=== PATIENT | female | born 1990 | race Caucasian/White ===

== ENCOUNTER 2018-05-16 14:32 | Emergency (ER) | payer SELFPAY ==
[2018-05-16 17:33] LABS: Absolute Monocytes 0.6 K/uL (0.1-1.3); Absolute Neutrophil 5.9 K/uL (1.8-8.0); Basophils % 0.5 % (0-1.3); Eosinophils % 0.4 % (0-4.4); Hematocrit 39.6 % (36.0-45.0); Lymphocytes % 23.2 % (15.3-44.8); MPV 10.6 fL (7.6-11.3); Monocytes % 6.6 % (3.3-12.3)
[2018-05-16 17:56] LABS: BUN Blood Urea Nitrogen 13 mg/dL (7-18); Bicarbonate 27 mmol/L (21-32); Glucose Level 79 mg/dL (74-106); HCG, Quantitative > 200000 mIU/mL (1-3); Potassium 3.7 mmol/L (3.5-5.1); Sodium Level 139 mmol/L (136-145)
--- NOTE | 2018-05-16 18:13 | RAD REPORT ---
EXAM DESCRIPTION: US - Transvaginal OB - 05/16/2018 5:58 pm CLINICAL HISTORY: with abdominal pain COMPARISON: None. FINDINGS: The uterus 8 x 7 x 7 centimeters. A gestational sac is present within the endometrium. Wi thin this is a pole with crown-rump length 2.1 centimeters. Cardiac activity 163 beats per adonis te. A yolk sac is seen. Neither ovary visualized. Right and left adnexal unremarkable. No significant free fluid IMPRESSION: Single live intrauterine with an estimated gestational age 8 weeks 5 days NACHO 12/21/2018
--- NOTE | 2018-05-16 18:23 | ER ---
Nurse's Notes [facility] Name: Duglas Paez Age: 28 yrs Sex: Female : 1990 Arrival Date: 05/16/2018 Time: 14:36 Bed 5 Private MD: None, None Diagnosis: Threatened Presentation: 05/16 15:06 Care prior to arrival: None. aa5 15:06 Presenting complaint: Pt's friend states "she started having back pain and vaginal aa5 spotting that began 1 week ago and got heavier yesterday". Denies passing blood clots. Pt reports positive test the beginning of April. Transition of care: patient was not received from another setting of care. Onset of symptoms was April 2018. Risk Assessment: Do you want to hurt yourself or someone else? Patient reports no desire to harm self or others. Initial Sepsis Screen: Does the patient meet any 2 criteria? No. Patient's initial sepsis screen is negative. Does the patient have a suspected source of infection? No. Patient's initial sepsis screen is negative. 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 - Social history:: Smoking status: Patient/guardian denies using tobacco. - Ebola Screening: : No symptoms or risks identified at this time. Screenin:53 Abuse screen: Denies threats or abuse. Nutritional screening: No deficits noted. tw2 Tuberculosis screening: No symptoms or risk factors identified. Fall Risk None identified. Assessment: 17:07 General: Appears in no apparent distress. Behavior is calm, cooperative, appropriate tw2 for age. Pain: Complains of pain in pelvis. Neuro: Level of Consciousness is awake, alert, obeys commands, Oriented to person, place, time, situation. Cardiovascular: Heart tones S1 S2 Patient's skin is warm and dry. Respiratory: Airway is patent Respiratory effort is even, unlabored, Respiratory pattern is regular, symmetrical, Breath sounds are clear bilaterally. GI: No signs and/or symptoms were reported involving the gastrointestinal system. Abdomen is flat, Bowel sounds present X 4 quads. : Reports vaginal bleeding that is. EENT: No signs and/or symptoms were reported regarding the EENT system. Derm: No signs and/or symptoms reported regarding the dermatologic system. Musculoskeletal: Range of motion: intact in all extremities. 18:19 Reassessment: Patient appears in no apparent distress at this time. No changes from tw2 previously documented assessment. Patient and/or family updated on plan of care and expected duration. Pain level reassessed. Patient is alert, oriented x 3, equal unlabored respirations, skin warm/dry/pink. 18:34 Reassessment: Patient appears in no apparent distress at this time. No changes from tw2 previously documented assessment. Patient and/or family updated on plan of care and expected duration. Pain level reassessed. Patient is alert, oriented x 3, equal unlabored respirations, skin warm/dry/pink. Vital Signs: 15:09 BP 110 / 60; Pulse 88; Resp 16 S; Temp 99.4(O); Pulse Ox 100% on R/A; Weight 52.62 kg aa5 (R); Pain 0/10; 17:00 BP 104 / 60; Pulse 80; Resp 17; Pulse Ox 100% on R/A; tw2 18:19 BP 105 / 65; Pulse 69; Resp 17; Pulse Ox 100% on R/A; tw2 18:34 BP 105 / 65; Pulse 72; Resp 17; Pulse Ox 100% on R/A; tw2 Vitals: 16:53 Heart Tones n/a pt <12 wks. tw2 ED Course: 14:36 Patient arrived in ED. mr 14:36 None, None is Private Physician. mr 15:06 Arm band placed on. aa5 15:08 Triage completed. aa5 16:50 Bed in low position. Call light in reach. Pulse ox on. NIBP on. Warm blanket given. tw2 16:52 Raeann Amaro, DUANE is Primary Nurse. tw2 16:55 Mike Hoskins PA is PHCP. jr8 16:55 Alan Spencer MD is Attending Physician. jr8 17:07 Inserted saline lock: 22 gauge in right antecubital area, using aseptic technique. tw2 Blood collected. 17:57 PHCP role handed off by Mike Hoskins PA snw 17:57 Zofia Spangler FNP-C is PHCP. snw 17:58 Transvaginal Ob In Process Unspecified. EDMS 18:22 Yesica Lares MD is Referral Physician. snw 18:55 No provider procedures requiring assistance completed. IV discontinued, intact, tw2 bleeding controlled, No redness/swelling at site. Pressure dressing applied. Administered Medications: No medications were administered Outcome: 18:23 Discharge ordered by . snw 18:55 Discharged to home ambulatory, with significant other. tw2 18:55 Condition: stable 18:55 Discharge instructions given to patient, family, Instructed on discharge instructions, follow up and referral plans. Demonstrated understanding of instructions, follow-up care. 18:55 Instructed on medication usage, Prescriptions given X 1. tw2 18:55 Patient left the ED. tw2 Signatures: Dispatcher [employer] [facility] Zofia Spangler FNP-C [employer]-[facility] Jesenia FrancoMargot, RN RN aa5 Mike Hoskins PA PA jr8 Raeann Amaro RN RN tw2
--- NOTE | 2018-05-16 18:23 | EDPHYS ---
Physician Documentation [facility] Name: Duglas Paez Age: 28 yrs Sex: Female : 1990 Arrival Date: 05/16/2018 Time: 14:36 Bed 5 Private MD: None, None ED Physician Alan Spencer HPI: 05/16 17:47 This 28 yrs old Female presents to ER via Ambulatory with complaints of jr8 Vaginal Bleeding, + Preg <12wks. 17:47 The patient presents to the emergency department with abdominal pain, of the right jr8 lower quadrant and left lower quadrant, that started gradually on/off for past week , described as crampy, vaginal bleeding, that is light, described as spotting. course: care: none, Leakage of Fluid: none appreciated, Ultrasound: the patient has not had an ultrasound, Risk/complications: no obvious risks or complications are appreciated. Previous pregnancies: the patient has never been . Associated signs and symptoms: The patient has no apparent associated signs or symptoms. The patient has not experienced similar symptoms in the past. The patient has not recently seen a physician. Stated that she has had on/off cramping and low back pain with spotting. Home test positive but unsure how far along she is. Could not give last menstrual period. Stated that pain was much worse yesterday and has had continued spotting through to today . 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 - Social history:: Smoking status: Patient/guardian denies using tobacco. - Ebola Screening: : No symptoms or risks identified at this time. ROS: 17:47 Eyes: Negative for injury, pain, redness, and discharge, ENT: Negative for injury, jr8 pain, and discharge, Neck: Negative for injury, pain, and swelling, Cardiovascular: Negative for chest pain, palpitations, and edema, Respiratory: Negative for shortness of breath, cough, wheezing, and pleuritic chest pain, Abdomen/GI: Negative for abdominal pain, nausea, vomiting, diarrhea, and constipation, Back: Negative for injury and pain, MS/Extremity: Negative for injury and deformity, Skin: Negative for injury, rash, and discoloration, Neuro: Negative for headache, weakness, numbness, tingling, and seizure. 17:47 : Positive for vaginal bleeding. Exam: 17:47 Eyes: Pupils equal round and reactive to light, extra-ocular motions intact. Lids and jr8 lashes normal. Conjunctiva and sclera are non-icteric and not injected. Cornea within normal limits. Periorbital areas with no swelling, redness, or edema. ENT: Nares patent. No nasal discharge, no septal abnormalities noted. Tympanic membranes are normal and external auditory canals are clear. Oropharynx with no redness, swelling, or masses, exudates, or evidence of obstruction, uvula midline. Mucous membranes moist. Neck: Trachea midline, no thyromegaly or masses palpated, and no cervical lymphadenopathy. Supple, full range of motion without nuchal rigidity, or vertebral point tenderness. No Meningismus. Cardiovascular: Regular rate and rhythm with a normal S1 and S2. No gallops, murmurs, or rubs. Normal PMI, no JVD. No pulse deficits. Respiratory: Lungs have equal breath sounds bilaterally, clear to auscultation and percussion. No rales, rhonchi or wheezes noted. No increased work of breathing, no retractions or nasal flaring. Abdomen/GI: Soft, non-tender, with normal bowel sounds. No distension or tympany. No guarding or rebound. No evidence of tenderness throughout. Back: No spinal tenderness. No costovertebral tenderness. Full range of motion. Skin: Warm, dry with normal turgor. Normal color with no rashes, no lesions, and no evidence of cellulitis. MS/ Extremity: Pulses equal, no cyanosis. Neurovascular intact. Full, normal range of motion. Neuro: Awake and alert, GCS 15, oriented to person, place, time, and situation. Cranial nerves II-XII grossly intact. Motor strength 5/5 in all extremities. Sensory grossly intact. Cerebellar exam normal. Normal gait. Vital Signs: 15:09 BP 110 / 60; Pulse 88; Resp 16 S; Temp 99.4(O); Pulse Ox 100% on R/A; Weight 52.62 kg aa5 (R); Pain 0/10; 17:00 BP 104 / 60; Pulse 80; Resp 17; Pulse Ox 100% on R/A; tw2 18:19 BP 105 / 65; Pulse 69; Resp 17; Pulse Ox 100% on R/A; tw2 18:34 BP 105 / 65; Pulse 72; Resp 17; Pulse Ox 100% on R/A; tw2 MDM: 16:55 Patient medically screened. jr8 18:37 Data reviewed: vital signs, nurses notes. Data interpreted: Pulse oximetry: on room air snw is 100 %. Interpretation: normal. Counseling: I had a detailed discussion with the patient and/or guardian regarding: the historical points, exam findings, and any diagnostic results supporting the discharge/admit diagnosis, lab results, radiology results, the need for outpatient follow up, to return to the emergency department if symptoms worsen or persist or if there are any questions or concerns that arise at home. Special discussion: Based on the history and exam findings, there is no indication for further emergent testing or inpatient evaluation. I discussed with the patient/guardian the need to see the OB Gyne specialist for further evaluation of the symptoms. 05/16 15:52 Order name: Quantitative Hcg; Complete Time: 17:58 snw 05/16 15:52 Order name: Abo/rh Typing; Complete Time: 18:13 snw 05/16 15:52 Order name: Basic Metabolic Panel; Complete Time: 17:58 snw 05/16 15:52 Order name: CBC with Diff; Complete Time: 17:55 snw 05/16 17:27 Order name: Urine Dipstick--Ancillary (enter results); Complete Time: 18:46 bd 05/16 17:27 Order name: Urine --Ancillary (enter results); Complete Time: 18:46 bd 05/16 15:52 Order name: Urine Test (obtain specimen); Complete Time: 17:01 snw 05/16 15:52 Order name: IV Saline Lock; Complete Time: 17:31 snw 05/16 15:52 Order name: Labs collected and sent; Complete Time: 17:31 snw 05/16 15:52 Order name: NPO; Complete Time: 17:31 snw 05/16 15:52 Order name: Urine Dipstick-Ancillary (obtain specimen); Complete Time: 17:01 snw 05/16 17:30 Order name: US Transvaginal Ob; Complete Time: 18:14 jr8 Administered Medications: No medications were administered Disposition: 19:00 Co-signature as Attending Physician, Alan Spencer MD. rn Disposition: 05/16/18 18:23 Discharged to Home. Impression: Threatened . - Condition is Stable. - Discharge Instructions: Threatened Miscarriage, First Trimester of , Pelvic Rest. - Prescriptions for Vitamin 27- 0.8 mg Oral Tablet - take 1 tablet by ORAL route once daily; 60 tablet. - Medication Reconciliation Form, Thank You Letter, Antibiotic Education, Prescription Opioid Use form. - Follow up: Yesica Lares MD; When: 2 - 3 days; Reason: Recheck today's complaints, Continuance of care. Signatures: Dispatcher [employer] EDMS Zofia Spangler, ENGINEERING OPERATOR-C ENGINEERING OPERATOR-Csnw Alan Spencer MD MD rn Calderon, Audri RN RN aa5 Mike Hoskins PA PA jr8 Raeann Amaro RN RN tw2 Corrections: (The following items were deleted from the chart) 18:55 18:23 05/16/2018 18:23 Discharged to Home. Impression: Threatened . Condition tw2 is Stable. Forms are Medication Reconciliation Form, Thank You Letter, Antibiotic Education, Prescription Opioid Use. Follow up: Yesica Lares; When: 2 - 3 days; Reason: Recheck today's complaints, Continuance of care. snw
[2018-05-16 18:40] LABS: Urine Blood NEGATIVE (NEG); Urine Glucose NEGATIVE (NEG); Urine Protein NEGATIVE (NEG); Urine pH 6.5 (5.0-7.0)
== END 2018-05-16 18:55 | disposition home or self-care (01) ==
LOC: ER 14:32
DX: O20.0 Threatened abortion (principal); Z3A.08 8 weeks gestation of pregnancy
CPT/HCPCS: 36415; 76817; 80048; 81003; 81025; 84702; 85025; 86900; 86901; 99284

== ENCOUNTER 2018-06-08 11:38 | Emergency (ER) | payer SELFPAY ==
--- NOTE | 2018-06-08 13:02 | RAD REPORT ---
EXAM DESCRIPTION: US - 1St Trimest Single 1St Fetus - 06/08/2018 12:54 pm CLINICAL HISTORY: with abdominal pain COMPARISON: May 16, 2018 FINDINGS: Uterus measures 15 x 5 x 9 centimeters. Single live intrauterine with a crown-ru mp length 5.6 centimeters. Transverse presentation. Cardiac activity 143 beats per minute The placenta is anterior. A subchorionic/retroplacental bleed is not seen. The placenta is low lying Right and left adnexal unremarkable. No significant free fluid IMPRESSION: A single live intrauterine with an estimated gestational age 12 weeks 2 days E DD 12/19/2018 Low lying placenta
--- NOTE | 2018-06-08 13:12 | EDPHYS ---
Physician Documentation [facility] Name: Duglas Paez Age: 28 yrs Sex: Female : 1990 Arrival Date: 06/08/2018 Time: 11:40 Bed 13 Private MD: None, None ED Physician Lonny Garcia HPI: 06/08 13:06 This 28 yrs old Female presents to ER via Ambulatory with complaints of Fall kb Injury, 9 wks . 13:06 Details of fall: The patient fell from a height, down approximately 3 stairs. Onset: kb The symptoms/episode began/occurred this morning. Associated injuries: The patient sustained injury to the abdomen, cramping. Severity of symptoms: At their worst the symptoms were mild, moderate, in the emergency department the symptoms are unchanged. The patient has not experienced similar symptoms in the past. The patient has not recently seen a physician. Pt reports abd cramping that has been going on for a few days. Today fell down 3 steps and just wanted to make sure the baby was ok. 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 - Social history:: Smoking status: Patient/guardian denies using tobacco. - Ebola Screening: : Patient negative for fever greater than or equal to 101.5 degrees Fahrenheit, and additional compatible Ebola Virus Disease symptoms Patient denies exposure to infectious person Patient denies travel to an Ebola-affected area in the 21 days before illness onset No symptoms or risks identified at this time. ROS: 13:05 Constitutional: Negative for fever, chills, and weight loss, Cardiovascular: Negative kb for chest pain, palpitations, and edema, Respiratory: Negative for shortness of breath, cough, wheezing, and pleuritic chest pain, Back: Negative for injury and pain, : Negative for injury, bleeding, discharge, and swelling, MS/Extremity: Negative for injury and deformity, Skin: Negative for injury, rash, and discoloration, Neuro: Negative for headache, weakness, numbness, tingling, and seizure. 13:05 Abdomen/GI: Positive for abdominal cramps, Negative for nausea, vomiting, and diarrhea. Exam: 13:05 Constitutional: This is a well developed, well nourished patient who is awake, alert, kb and in no acute distress. Head/Face: Normocephalic, atraumatic. Chest/axilla: Normal chest wall appearance and motion. Nontender with no deformity. No lesions are appreciated. Cardiovascular: Regular rate and rhythm with a normal S1 and S2. No gallops, murmurs, or rubs. Normal PMI, no JVD. No pulse deficits. Respiratory: Lungs have equal breath sounds bilaterally, clear to auscultation and percussion. No rales, rhonchi or wheezes noted. No increased work of breathing, no retractions or nasal flaring. Abdomen/GI: Soft, non-tender, with normal bowel sounds. No distension or tympany. No guarding or rebound. No evidence of tenderness throughout. Skin: Warm, dry with normal turgor. Normal color with no rashes, no lesions, and no evidence of cellulitis. MS/ Extremity: Pulses equal, no cyanosis. Neurovascular intact. Full, normal range of motion. Neuro: Awake and alert, GCS 15, oriented to person, place, time, and situation. Cranial nerves II-XII grossly intact. Motor strength 5/5 in all extremities. Sensory grossly intact. Cerebellar exam normal. Normal gait. Vital Signs: 11:57 BP 99 / 70; Pulse 70; Resp 18; Temp 98.1(O); Pulse Ox 100% on R/A; Weight 72.57 kg; hj Height 5 ft. 1 in. (154.94 cm); 11:57 Body Mass Index 30.23 (72.57 kg, 154.94 cm) hj MDM: 12:18 Patient medically screened. kb 13:05 Data reviewed: vital signs, nurses notes. Data interpreted: Pulse oximetry: on room air kb is 100 %. Interpretation: normal. Counseling: I had a detailed discussion with the patient and/or guardian regarding: the historical points, exam findings, and any diagnostic results supporting the discharge/admit diagnosis, radiology results, the need for outpatient follow up, an OB/Gyne specialist, to return to the emergency department if symptoms worsen or persist or if there are any questions or concerns that arise at home. 06/08 12:38 Order name: 1St Trimest Single 1St Fetus; Complete Time: 13:05 EDMS Administered Medications: No medications were administered Disposition: 17:15 Co-signature as Attending Physician, Lonny Garcia MD. ma2 Disposition: 06/08/18 13:11 Discharged to Home. Impression: 12 weeks gestation of . - Condition is Stable. - Discharge Instructions: First Trimester of , [id number]. - Family Work Release, Medication Reconciliation Form, Thank You Letter, Antibiotic Education, Prescription Opioid Use form. - Follow up: Emergency Department; When: As needed; Reason: Worsening of condition. Follow up: Private Physician; When: 2 - 3 days; Reason: Recheck today's complaints, Continuance of care, Re-evaluation by your physician. Signatures: Dispatcher [employer] EDAL Lynn Mccoy, JARROD MANCIA-Kate Arora RN RN aj Joaquin, Henry, RN RN hj Alzahri, Mohammad, MD MD ma2 Corrections: (The following items were deleted from the chart) 12:37 12:23 OB Limited+[id number].RAD.BRZ ordered. EDAL EDMS 12:38 12:37 Transvaginal OB ordered. EDAL EDMS 13:22 13:11 06/08/2018 13:11 Discharged to Home. Impression: 12 weeks gestation of . aj Condition is Stable. Forms are Medication Reconciliation Form, Thank You Letter, Antibiotic Education, Prescription Opioid Use. Follow up: Emergency Department; When: As needed; Reason: Worsening of condition. Follow up: Private Physician; When: 2 - 3 days; Reason: Recheck today's complaints, Continuance of care, Re-evaluation by your physician. kb
--- NOTE | 2018-06-08 13:12 | ER ---
Nurse's Notes [facility] Name: Duglas Paez Age: 28 yrs Sex: Female : 1990 Arrival Date: 06/08/2018 Time: 11:40 Bed 13 Private MD: None, None Diagnosis: 12 weeks gestation of Presentation: 06/08 11:52 Presenting complaint: Patient states: i fell downstairs this morning, fell on my butt, hj three steps, denies hitting head and LOC, LMP- 03/16/18; denies abd pain, reports discharge, denies vaginal bleed; denies N/V;. Transition of care: patient was not received from another setting of care. Onset of symptoms was June 08, 2018. Risk Assessment: Do you want to hurt yourself or someone else? Patient reports no desire to harm self or others. Initial Sepsis Screen: Does the patient meet any 2 criteria? No. Patient's initial sepsis screen is negative. Does the patient have a suspected source of infection? No. Patient's initial sepsis screen is negative. Care prior to arrival: None. 11:52 Method Of Arrival: Ambulatory 11:52 Acuity: NATA 3 11:56 Mechanism of Injury: Fall. Trauma event details: Injury occurred in the county of [facility], Injury occurred: at home. Injury occurred: June 08, 2018. 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 - Social history:: Smoking status: Patient/guardian denies using tobacco. - Ebola Screening: : Patient negative for fever greater than or equal to 101.5 degrees Fahrenheit, and additional compatible Ebola Virus Disease symptoms Patient denies exposure to infectious person Patient denies travel to an Ebola-affected area in the 21 days before illness onset No symptoms or risks identified at this time. Screenin:20 Abuse screen: Denies threats or abuse. Denies injuries from another. Nutritional aj screening: No deficits noted. Tuberculosis screening: No symptoms or risk factors identified. Fall Risk None identified. Primary Survey: 11:56 NO uncontrolled hemorrhage observed. A: The patient is alert. Airway: patent, No hj supplemental oxygen in use on arrival. Oral cavity: clear, gag reflex present, Trachea midline. Breathing/Chest: Respiratory pattern: regular. Circulation: Cardiac rhythm: sinus rhythm Heart tones present. Pulses: Skin color: pink, Skin temperature: warm, dry. Disability Alert. Exposure/Environment: All clothing and personal items were removed. There is no evidence of uncontrolled external bleeding. No obvious injuries are noted at this time. A warming method has been applied: A warm blanket has been provided to the patient. Assessment: 13:20 General: Appears in no apparent distress. comfortable, Behavior is calm, cooperative, aj appropriate for age. Pain: Denies pain. Neuro: Level of Consciousness is awake, alert, obeys commands, Oriented to person, place, time, situation, Appropriate for age. Respiratory: Airway is patent Respiratory effort is even, unlabored, Respiratory pattern is regular, symmetrical. GI: Abdomen is flat. Derm: Skin is intact, is healthy with good turgor, Skin is pink, warm \T\ dry. normal. Vital Signs: 11:57 BP 99 / 70; Pulse 70; Resp 18; Temp 98.1(O); Pulse Ox 100% on R/A; Weight 72.57 kg; hj Height 5 ft. 1 in. (154.94 cm); 11:57 Body Mass Index 30.23 (72.57 kg, 154.94 cm) ED Course: 11:40 Patient arrived in ED. mr 11:40 None, None is Private Physician. mr 11:41 [facility] kb 11:41 Lonny Garcia MD is Attending Physician. kb 11:55 Triage completed. hj 11:56 Arm band placed on left wrist. hj 12:28 Kate Hdez, DUANE is Primary Nurse. aj 12:54 1St Trimest Single 1St Fetus In Process Unspecified. EDMS 13:20 Patient has correct armband on for positive identification. aj 13:20 No provider procedures requiring assistance completed. Patient did not have IV access aj during this emergency room visit. Administered Medications: No medications were administered Outcome: 13:11 Discharge ordered by . kb 13:20 Discharged to home ambulatory, with family. aj 13:20 Condition: good 13:20 Discharge instructions given to patient, family, Instructed on discharge instructions, follow up and referral plans. Demonstrated understanding of instructions, follow-up care. 13:22 Patient left the ED. mikaela Signatures: Dispatcher [employer] EDLynn Diaz, COTTON CLASSER-C COTTON CLASSER-Kate Arora, RN RN Jesenia Choi mr MarceloFabio RN RN hj Corrections: (The following items were deleted from the chart) 11:59 11:57 Pulse 75bpm; Resp 18bpm; Pulse Ox 100% RA; Temp 98.1F Oral; 72.57 kg; Height 5 hj ft. 1 in.; BMI: 30.2; hj
== END 2018-06-08 13:22 | disposition home or self-care (01) ==
LOC: ER 11:38
DX: O26.891 Other specified pregnancy related conditions, first trimester (principal)
CPT/HCPCS: 76801; 99283

== ENCOUNTER 2018-11-13 09:08 | Inpatient (IN) | payer OTHER, SELFPAY ==
[2018-11-13 10:01] VITALS: BMI 3462.7
[2018-11-13] MEDS ORDERED: METHYLERGONOVINE 0.2MG/ML AMP IM PRN (10:03)
[2018-11-13] MEDS ORDERED: PROMETHAZINE 25 MG/ML VIAL IV PRN (10:03)
[2018-11-13] MEDS ORDERED: MEPERIDINE HCL 25 MG/0.5 ML IV PRN (10:03)
[2018-11-13] MEDS ORDERED: Ringers Lactate 1,000 ML IV PRN (10:03)
[2018-11-13] MEDS ORDERED: MIDAZOLAM HCL 2 MG/2 ML INJ IV PRN (10:03)
[2018-11-13] MEDS ORDERED: CARBOPROST TROME 250 MCG/ML IM PRN (10:03)
[2018-11-13] MEDS ORDERED: BUTORPHANOL 1 MG/ML INJ IV PRN (10:03)
[2018-11-13] MEDS ORDERED: PENICILLIN G POT 5 MU/100 ML VIAL IV ONE (10:30)
[2018-11-13 10:48] LABS: Absolute Lymphocytes (CBC) 2.1 K/uL (0.7-4.9); Basophils % 0.7 % (0-1.3); Hematocrit 36.1 % (36.0-45.0); Lymphocytes % 16.7 % (15.3-44.8); MPV 9.9 fL (7.6-11.3); RBC Red Blood Cell Count 3.95 M/uL (3.86-4.86)
[2018-11-13] MEDS ORDERED: INFLUENZA VACCINE (for 3y+) 0.5 ML DOSE IMVAC ONE (11:00)
[2018-11-13] MEDS ORDERED: Ringers Lactate 1,000 ML IV SCH (11:00)
[2018-11-13] MEDS ORDERED: OXYTOCIN/LR 20 UNIT/1,000 ML BAG IV SCH (11:00)
[2018-11-13] MEDS ORDERED: ROPIVACAINE HCL 100 ML IV PRN (11:59)
[2018-11-13] MEDS ORDERED: FENTANYL CITR 100 MCG/2 ML IV ONE (11:59)
[2018-11-13] MEDS ORDERED: ROPIVACAINE HCL 0.2% 20ML AMP IV ONE (12:12)
[2018-11-13] MEDS ORDERED: PENICILLIN 2.5 MU in NA CHLORIDE 0.9% 100 ML IV SCH (14:00)
--- NOTE | 2018-11-13 16:20 | PN ---
6 milliunits of Pitocin. Baby looks good. Vital signs are all stable. Patient is still not really uncomfortable yet. She is 4 cm, 80% effaced. The baby has not descended any from what it was. We w ill keep increasing Pitocin until we get into a good labor pattern. HERMINIO/ALEX Voice ID: [id number] Report ID: [id number]
[2018-11-13] MEDS ORDERED: CEFAZOLIN/SWI 2gm 2 GM/20 ML SYR ONE ×2 (23:12→23:21)
[2018-11-13] MEDS ORDERED: NA CIT/CITRIC AC 30 ML ORAL UDC ONE (23:13)
[2018-11-13] MEDS ORDERED: NA CIT/CITRIC AC 30 ML ORAL UDC PO ONE (23:13)
[2018-11-13] MEDS ORDERED: LIDOCAINE 2% INJ, 20 mL 0 ML ONE (23:26)
[2018-11-13] MEDS ORDERED: LIDOCAINE 2% W/EPI 1:200,000 MPF 20 ML VIAL IM ONE (23:35)
[2018-11-13] MEDS ORDERED: METOCLOPRAMIDE 10 MG/2mL INJ IV SCH (23:45)
[2018-11-13] MEDS ORDERED: CEFAZOLIN 2 GM in NA CHLORIDE 0.9% 100 ML IVPB SCH (23:45)
[2018-11-13] MEDS ORDERED: OXYTOCIN 10 UNIT/ML ML IV ONE (23:52)
[2018-11-13] MEDS ORDERED: ONDANSETRON 4 MG/2 ML VIAL ONE (23:57)
[2018-11-14] MEDS ORDERED: MORPHINE SULFATE/PF 1 MG/ML (10 ML AMP) ONE (00:03)
[2018-11-14] MEDS ORDERED: EPHEDRINE SULF 50 MG/ML VIAL ONE (00:08)
[2018-11-14] MEDS ORDERED: ONDANSETRON 4 MG/2 ML VIAL ONE (00:17)
[2018-11-14] MEDS ORDERED: ONDANSETRON 4 MG/2 ML VIAL IV PRN (00:30)
[2018-11-14] MEDS ORDERED: BISACODYL 10 MG RECTAL SUPP RECT PRN (00:30)
[2018-11-14] MEDS ORDERED: IBUPROFEN 200 MG TAB PO PRN (00:30)
[2018-11-14] MEDS ORDERED: ONDANSETRON 4 MG (ODT) TAB PO PRN (00:30)
[2018-11-14] MEDS ORDERED: KETOROLAC 30 MG/ML INJ IV PRN (00:30)
[2018-11-14] MEDS ORDERED: ACETAMINOPHEN 500 MG TAB PO PRN ×2 (00:30)
[2018-11-14] MEDS ORDERED: DIPHENHYDRAMINE 25 MG TAB/CAP PO PRN (00:30)
[2018-11-14] MEDS ORDERED: KETOROLAC 30 MG/ML INJ IM PRN (00:30)
--- NOTE | 2018-11-14 00:47 | PN ---
Patient is now on 24 milliunits of Pitocin. We have just changed her bag to make sure she has fresh Pitocin. Throughout the day, we have only been able to get contractions every 3 to 4 minutes at best . Baby still looks good. Vital signs are normal. She is afebrile. She of course is getting penici llin prophylaxis, but her cervix is unchanged in the last 3 to 4 hours. Baby has not descended. Thi s is just not that big a baby, but her uterus just does not seem to be responding to the oxytocin. D iscussion with patient and family, we will wait at least another hour, check her, and if no progress, at some point we will consider . Patient has been 13 hours now since rupture of membranes, but the baby still looks good and she is getting antibiotics, so as far as infections, I do not think we have to worry at this point. HERMINIO/ALEX Voice ID: [id number] Report ID: [id number]
[2018-11-14 00:54] LABS: RPR (Rapid Plasma Reagin) NON-REACT (NON-REACT)
[2018-11-14] MEDS ORDERED: OXYTOCIN/LR 20 UNIT/1,000 ML BAG IV SCH (01:00)
[2018-11-14] MEDS ORDERED: D5LR 1,000 ML with OXYTOCIN 20 UNIT IV SCH ×2 (01:00)
--- NOTE | 2018-11-14 02:21 | PREOPHP ---
Date of Admission: 11/13/2018 History Of Present Illness: This is a 28-year-old primigravida, 35 weeks and 1 day, had spontaneous rupture of membranes, 7 this morning. Came in, was 3 cm on admission vertex, -1 station. FHTs vaughn l, reactive, clear fluid. Since she was less than 37 weeks, she was started on penicillin prophylaxi s and had 3 doses. She was also started on Pitocin. Progressed to approximately 4.5 cm but then exp erienced secondary arrest of labor since then even though she does not have a large baby. She has do ne pelvic locks. We have gone to 26 milliunits of Pitocin. Her cervix has a very tight band that is very unusual feeling. Baby still looks good. There are no signs of fever, but the baby has not nelly cended 1 cm since she came in and she is not dilated to more than 4.5 cm in over 6 hours in spite of uterine contractions and 26 milliunits of Pitocin. She was anemic at the first part of the . She is Rh positive, immune to Rubella. Family History: Really not contributory to current situation. Allergies: SHE HAS NO DRUG ALLERGIES. Physical Examination: HEENT: Clear. Pupils equally round, and reactive to light and accommodation. Conjunctivae well per fused. No oral, lingual, or buccal lesions. Chest and Lungs: Clear. Heart: Without murmurs, thrills, heaves, or rubs. Breasts: Not examined. Abdomen: Clear. Extremities: Clear. Pelvic: Her cervix is as stated, a 4.5 cm with a tight band, baby at -1 station. Fluid is still erin ar. At this point, I have discussed with patient and and I have suggested that we probably procee d with at this point, although if they wish to wait another hour or so, we can because the b cheryl is not in any difficulties at this point. They will discuss it and they decide to proceed, the e pidural is working well, and we would just use the epidural for anesthesia. Full discussion. Decision pending. HERMINIO/ALEX Voice ID: [id number]
--- NOTE | 2018-11-14 05:06 | DN ---
Surgeon: Zeus Hawk MD Indications: 28-year-old primigravida, 35 weeks _ONE days, spontaneous rupture of membranes, clear fluid, came into labor and delivery, noted to be 3 cm, vertex, -1 to -2 station. She was started on penicillin prophylaxis as she was less than 37 weeks and Pitocin. Progressed to approximately 5 cm, at which time she experienced arrest of labor for more than 8 hours in spite of IV drip Pitocin at 26 milliunits a minute. Failure to progress was diagnosed, suspected brow presentation or some other unusual presentation. Full preoperative counseling concerning procedure and possible complications including infection; blood loss; anesthetic complications; injury to bladder, bowel, ureter; postoperative complications; clots in legs; and pneumonia. Patient had a functioning epidural, which was topped off by Dr. Soliman and worked quite well. Description Of Procedure: After prepping and draping, time-out was performed. 2 g of Ancef had been given prophylactically during the labor, 3 doses of penicillin. Transverse incision was made. The incision was carried to the fascia. The fascia was incised and incision carried transversely bilaterally. Anterior and posterior fascial planes were developed with both blunt and sharp dissection. Peritoneum entered bluntly. Bladder flap developed. Low transverse uterine incision created. An approximately 4-1/2 to 5-pound female was delivered without difficulties, Apgars 9 and 9. Cord blood specimen was obtained. Placenta was removed manually. Uterus was cleared of clot and blood , and exteriorized. Uterus was hypotonic. 0.2 mg of Methergine IM as well as IV drip Pitocin. Estimated blood loss during procedure 1100 cc. Uterus was closed with a running locked stitch of 1 chromic. No further bleeding was seen. Gutters were clear of clot and blood. It was noted patient had a very prominent sacral promontory and the baby at the time of delivery was indeed more of a brow presentation rather than straight vertex. The rectus muscles were reapproximated with 0 Vicryl 3 interrupted sutures. Fascia was closed with 1 Vicryl running from either angle to the midline. Subcutaneous tissue closed with 2-0 plain. Absorbable cruzito placed and then metal cruzito. Patient tolerated all procedures well, was transferred back to her room in good condition. Final Diagnoses: Intrauterine gestation, 35 weeks and ___TWO days at the time of delivery, spontaneous rupture of membranes, failure to progress in labor, brow presentation prominent sacral promontory, mild uterine hypotonus. HERMINIO/ALEX Voice ID: [id number] Report ID: [id number] MTDD
[2018-11-14] MEDS ORDERED: CEFAZOLIN SODIUM 1 GM/VIAL IVP ONE (08:00)
[2018-11-14] MEDS ORDERED: CEFAZOLIN 1GM (PREMIX IV) 1 GM/50 ML BAG IV ONE (08:00)
--- NOTE | 2018-11-14 08:48 | PREOPHP ---
Date of Admission: 11/13/2018 This 28-year-old primigravida at 35 weeks 1 day experienced spontaneous rupture of membranes, came to our hospital. She is 3.5 to almost 4 cm, 80% effaced, vertex, -1 station, well applied. Clear flui d. FHTs normal, reactive. She is Rh positive, immune to rubella and beta strep screen has not been performed yet. Patient was offered penicillin prophylaxis since she is less than 37 weeks. Full lab or talk given. Patient is really not uncomfortable at this point. We will start Pitocin. She is pl anning probably on use an epidural although she has agreed she will wait until she is more comfortabl e and the baby is lower. Anticipate delivery later today. Patient knows that if the baby is conside red premature, she has a female fetus and that if the baby has any significant problems, baby who stephany l be transferred to another institution, that remains to be seen of course. Labor talk given. HERMINIO/ALEX Voice ID: [id number]
--- NOTE | 2018-11-14 08:51 | PN ---
The patient has her epidural quite comfortable. She can still move her legs but really cannot feel c ontractions at all now. She is 5 cm, still -1. She has not effaced anymore, has not brought the bab y down anymore. She was not complaining of back pain prior the epidural, so the baby though still co uld be occiput posterior, will think about doing pelvic rocks. She is on 18 milliunits of Pitocin. We will go to 20 and then possibly to 22 milliunits to ensure good firm contractions. Blood pressure is 99 systolic. I have told the nurse to hydrate and if her blood pressure does not get above 100 i n the next few minutes to put on the SHASHANK hose to compress her legs and help her blood pressure get in to a more normal range although the patient is completely asymptomatic at this point. HERMINIO/ALEX Voice ID: [id number] Report ID: [id number]
[2018-11-14] MEDS ORDERED: FAMOTIDINE 20 MG/2 ML VIAL IV SCH (09:00)
--- NOTE | 2018-11-14 09:06 | PN ---
Postoperatively, patient is doing well. Output is good. Lochia is normal. Hematocrit is pending. Pulses have been in the 60 to 70 range. Patient has no complaints this morning. Full postoperative talk given. We will probably discontinue her IV around lunchtime if everything is normal. Perez cat heter later today. The patient will be assisted in ambulation later this morning. Baby seems to be retracting. Dr. Booker is aware of this. If the baby has any problems that cannot be handled here she will be transferred to another facility. Patient is aware of this. HERMINIO/ALEX Voice ID: [id number] Report ID: [id number]
--- NOTE | 2018-11-14 09:06 | PN ---
The patient again has made no change. Baby has not descended. I think we are probably dealing with an abnormal presentation, such as a brow, although I cannot feel face of the baby, but it is certainl y not straight vertex. It has been over 8 hours now and she has made no change in spite of extremely good contractions. We will proceed on with at this point. She has already been fully coun seled and we are making preparations. HERMINIO/ALEX Voice ID: [id number] Report ID: [id number]
[2018-11-14] MEDS ORDERED: Ringers Lactate 2,000 ML IV ONE (12:23)
[2018-11-14] MEDS: MAGNESIUM HYDROXIDE 8% 30 ML PO PRN (20:28)
[2018-11-14] MEDS: Oxycodone HCl/Acetaminophen 1 TAB TAB PO PRN (22:26)
[2018-11-15] MEDS: Oxycodone HCl/Acetaminophen 1 TAB TAB PO PRN ×2 (03:40→11:29)
[2018-11-15] MEDS ORDERED: INFLUENZA VACCINE (for 3y+) 0.5 ML DOSE IMVAC ONE (08:34)
[2018-11-15] MEDS ORDERED: Ringers Lactate 1,000 ML IV ONE (09:47)
[2018-11-15 11:28] VITALS: BP 123/75; TEMP 99.6
[2018-11-15] MEDS: MAGNESIUM HYDROXIDE 8% 30 ML PO PRN (11:31)
--- NOTE | 2018-11-16 18:59 | DS ---
Date of Discharge: 11/15/2018 Hospital Course: 28-year-old primigravida, at 35 weeks 1 day, on admission, delivered close to midnight, so at 35 weeks and 2 days at the time of delivery. Came in with ruptured membranes, 3 cm, started on penicillin prophylaxis which she received 3 doses, first dose 5 million units, second 2 doses 2.5 million units. Progressed to 5 cm. Had epidural anesthesia, but after reaching 5 cm, stayed at 5 cm in spite of good regular uterine contractions and 26 milliunits of Pitocin for more than 7-8 hours. It was thought to have unusual presentation, at first it was thought to be possible brow, then later it looks like a severe flex position with the occiput presenting. Patient was taken to surgery. Full preoperative counseling concerning procedure and possible complications, including infection, blood loss, anesthetic complications, injury to bladder, bowel, ureter, postoperative complications, clots in legs, and pneumonia. Patient knows fully well this does not constitute all the possible problems that could occur during or following surgery. She was delivered of a 4 pound 9 ounce female. Apgars 9 and 9. Mild uterine hypotonus, 0.2 mg of Methergine IM. Estimated blood loss 1100 mL. Postoperatively, patient has remained afebrile. She is ambulating and voiding, lochia is normal. Baby has been transferred to a tertiary care center for pulmonary care. Patient will be dismissed later this afternoon to report back to my office next week for followup. To report any temperature elevation of 100 degrees or greater, severe pain, heavy bleeding, or any other type of abnormality, dismissed with tramadol at her request. We will take 1 tablet every 4-6 hours as needed. She is Rh positive, immune to Rubella. She has had her Tdap immunization, flu shot offered. No post epidural problems. Final Diagnoses: Intrauterine gestation at 35 weeks 2 days at the time of delivery. Premature rupture of membranes, primary section, unusual presentation, prominent sacral promontory, mild uterine hypotonicity penicillin prophylaxis. HERMINIO/ALEX Voice ID: [id number] Report ID: [id number] KRISTIN
[2018-11-16 19:01] LABS: HBsAG Nonreactive (Nonreactive)
== END 2018-11-15 12:05 | disposition home or self-care (01) | DRG 788 ==
LOC: L&D 09:08 → 2ND-WC 09:36
PROVIDERS: ADMIT Specialist; ATTEND Specialist
PROC: 10D00Z1 Extraction of Products of Conception, Low, Open Approach (ICD-10-PCS; principal; 2018-11-13 23:00)
DX: O32.3XX0 Maternal care for face, brow and chin presentation, not applicable or unspecified (principal); O42.013 Preterm premature rupture of membranes, onset of labor within 24 hours of rupture, third trimester; O62.2 Other uterine inertia; Z3A.35 35 weeks gestation of pregnancy; Z37.0 Single live birth; Z23 Encounter for immunization
CPT/HCPCS: 36415; 85014; 85025; 86592; 86901; 87340; 88307; 90471; J0690; J2210; J2405; J2550; J2590; J2765; J2795; J3010; J7120; Q2035